=== PATIENT | female | born 1965 | race Caucasian/White ===

== ENCOUNTER 2016-09-22 20:00 | Emergency (ER) | payer MEDICARE, MEDICAID ==
[~2016-09-22] VITALS: Ht 132.1 cm; Wt 59.0 kg
[~2016-09-22 20:00] MED LIST: ACETAMINOPHEN650 MG RC; ATIVAN GENERIC0.5 MG GT; BAZA PROTECT TP; BISACODYL10 MG RC; CHEWABLE ASPIRI81 MG GT; CLINDAMYCIN HC300 MG PO; COLACE150 MG/15 GT; CORTISPORIN OTI10 M1 OT; DEPO SHOTS IM; DEPO-PROVER150 MG/M1 IM; DILANTIN 1125 MG/5 M GT; DILANTIN 50MG.50 MG GT; DILANTIN-1125 MG/51 GT; DUONEB 3 MG/3 ML3 ML IH; HYDROXYZIN10 MG/5 M2 GT; HYDROXYZINE 25M25 MG GT; HYDROXYZINE HCL25 M1 GT; IBUPROFEN100 MG/51 GT; IBUPROFEN100 MG/52 GT; IMODIUM 2MG. CAP2 MG GT; IMODIUM2 MG GT; LEVAQUIN500 MG PO; LORAZEPAM 2MG2 MG/M1 IM; LORAZEPAM IM; LORAZEPAM0.5 MG/TAB GT; LORAZEPAM0.5 MG/TAB IM; LORAZEPAM2 MG GT; LORTAB 5/500 501 TAB GT; LORTAB 5/500 501 TAB PO; MACROBID 100MG100 MG PO; MIRALAX17 GM/PACK GT; OSTERA TABLET1 EACH GT; PHENOBARBI GT; PHENOBARBITAL64.8 MG GT; SENNA8.6 M1 GT; SIMETHICONE80 MG GT; TYLENOL 325MG325 MG PO; VICODIN 5/500 T1 TAB GT; ZYPREXA5 MG GT; [UNRECOGNIZED DRUG - OTHER] RC
--- NOTE | 2016-09-22 21:37 | Emergency Room Report ---
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 N Clinical Suspician of Infection? N Mental Status: 1 - Regular (Normal Baseline) Sepsis Risk:Low Sepsis Risk Have you (or family members/close friends) recently traveled outside the [place]? N If Yes, where/when: Have you had exposure to infectious disease within the past month? N TB? Other? Specify: Source RN notes reviewed, family, RN/MD Exam Limitations no limitations Comment This is a 51-year-old lady, [facility] resident, brought in by ambulance for evaluation of a dislodged PEG tube, just noticed by [facility] staff. We were advised that the PEG tube has been out for an unknown known amount of time. Patient has a history of PKU, [facility] staff believes she could have pulled the PEG tube out. ALLERGIES Coded Allergies: Penicillins (I-RASH 09/10/16) ceftriaxone (UNKNOWN REACTION 09/10/16) potassium (UNKNOWN REACTION 09/10/16) Home Medications Active Scripts Levofloxacin (Levaquin 500MG) 500 MG PO DAILY #7 TAB Prov: 09/13/16 Clindamycin Hcl (Clindamycin 300MG) 300 MG PO TID #30 CAP Prov: 09/13/16 Reported Medications Hydroxyzine Pamoate (Hydroxyzine) 25 MG GT BID Phenytoin (Dilantin) 100 MG GT TID Phenytoin (Dilantin) 100 MG GT BID Lorazepam (Lorazepam 2MG/Ml Vial) 1 MG IM Q4HP PRN SEIZURE Polyethylene Glycol 3350 (Miralax) 17 GM GT DAILYP Sennosides (Senna) 8.6 MG GT DAILY NA PHOS,M-B/NA PHOS,DI-BA (Enema Ready To Use) 135 ML RC DAILYP PRN CONSTIPATION HYDROXYZINE HCL (Hydroxyzine HCl) 25 MG GT TIDP PRN ITCHING IBUPROFEN (Ibuprofen 100MG/5ML Susp Udc) 400 MG GT Q6HP PRN PAIN/FEVER Loperamide Hcl (Loperamide) 2 MG GT Q6HP PRN DIARRHEA Bisacodyl (Bisacodyl Supp) 10 MG RC Q72HP Aspirin (Aspirin, Chewable) 81 MG GT DAILY SIMETHICONE (Simethicone 80MG) 80 MG GT QIDP PRN GAS Phenobarbital 64.8 MG GT Q12 Medroxyprogesterone Acetate (Depo-Provera) 150 MG IM [id number] Lorazepam (Lorazepam 0.5MG) 0.5 MG GT TID Vit D3 & K/Berberine HCl/Hops (Ostera Tablet) 1 EACH GT DAILY History Medical History General CAD? No Angina: No VA: No Hypertension? No Hyperlipidemia? No CHF? No DVT? No PE? No COPD? No Asthma? No Anemia? No GERD? No Gastric ulcers? No GI Bleed? No Hernia? No Thyroid Problems? No Hypothyroidism? No CVA? No Seizures? Yes Diabetes? No Renal Insuffiency? No End Stage Renal Disease? No UTI? Yes Stones? No BPH? No GB Disease: No Nephritic Syndrome? No Asplenia? No Hepatitis? No Sickle Cell Disease? No Arthritis? No Migraines? No Cataracts? No Glaucoma? No MRSA? No HIV? No TB? No Anxiety? No Depression? No Cancer? No More? 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 N/A Family History Family Hx Diabetes Yes CAD No Hypertension Yes Hyperlipidemia No Cancer No TB No Social History Smoking Hx Smoker: Never Smoker Tobacco: No Packs/day N/A Alcohol Alcohol: No Review of Systems All Other Systems Reviewed and Negative Gastrointestinal other (G tube out) Physical Exam Vital Signs Vital Signs Date Time Temp Pulse Resp B/P Pulse O2 O2 Flow FiO2 Ox Delivery Rate 09/225 98.4 95 16 120/94 99 09/22 2136 98 16 122/90 100 09/22 2101 99 16 128/80 100 09/22 2001 98.4 97 16 149/86 100 General Appearance no apparent distress, mentally retarded, confused, nonvocal Respiratory Status Yes: trachea midline, chest symmetrical, non tender chest. No: respiratory distress. Lung Sounds bilateral: normal breath sounds, lungs clear. Cardiovascular normal exam, regular rate/rhythm Gastrointestinal normal bowel sounds, normal exam, soft, no organomegaly, gastrostomy tube out, stoma open, no active bleeding Extremities non-tender, normal range of motion, normal inspection Neurologic alert, mentally retarded, consistent with PKU, nonvocal Mental status confused, depressed affect Skin intact, normal color, warm/dry Medical Decision Making LABS/Meds/Orders Pt receiving controlled substance in ED? No Comment 08:30pm-procedure note. G tube attempted to be placed back in, stome is too narrow, unable to pass the tube, no immediate complications. Garcia catheter placed through the gastrostomy stoma without any difficulty. Post-Garcia catheter placement x-ray with Gastrografin confirms correct positioning of tube. 8:45pm-case discussed with Dr Oleary, advised of patient's examination, fact that I was unable to replace the PEG tube and I have placed a temporary Garcia catheter instead. Inquired into plan of action, as far as replacing patient's Garcia catheter/ switching back to her PEG tube. The surgeon advised to [facility] to the [facility] and have the [facility] staff called his office in the morning in order to schedule a same day surgery appointment for above-mentioned procedure. Patient departed the emergency room in stable medical condition, Garcia catheter was successfully flushed with saline. Results/Orders Current Medication Orders Sig/Julian Start time Last Medication Dose Route Stop Time Status Admin Diatrizoate Meglum/ 15 ML ONCE ONE 09/22 2044 DC 09/22 Diatrizoate Sod FT 09/22 Diatrizoate Meglum/ 0 .STK-MED ONE 09/22 2035 DC Diatrizoate Sod .ROUTE Diatrizoate Meglum/ 0 .STK-MED ONE 09/22 2034 DC Diatrizoate Sod .ROUTE Orders Procedure Date/time Status KUB (SINGLE VIEW) 09/22 2036 Active XRAY/CT/US XRAY/CT/US XRAY KUB-PEG tube in satisfactory position. Departure Departure Time of Disposition 2132 Disposition DC Home or Self Care(routine) Clinical Impression Primary Impression: PEG tube malfunction Condition STABLE Referrals Brandyn Oleary MD: Tomorrow-Call Office Patient Instructions DI for Percutaneous Endoscopic Gastrostomy, How to Care for Your PEG Tube Additional Instructions Please call Dr. Oleary's office in the morning to arrange for a PEG tube placement appointment/same day surgery. In the meanwhile may use the Garcia catheter as a PEG tube. If any further problems please return patient to this emergency room promptly for reevaluation. Discharge Counseling Counseled pt/family regarding diagnosis, test results, medications/RX, home care, follow up needs Comment Please call Dr. Oleary's office in the morning to arrange for a PEG tube placement appointment/same day surgery. In the meanwhile may use the Garcia catheter as a PEG tube. If any further problems please return patient to this emergency room promptly for reevaluation. ED Critical Care Critical Care No at [id number]
--- NOTE | 2016-09-22 21:37 | Emergency Room Report ---
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 N Clinical Suspician of Infection? N Mental Status: 1 - Regular (Normal Baseline) Sepsis Risk:Low Sepsis Risk Have you (or family members/close friends) recently traveled outside the [place]? N If Yes, where/when: Have you had exposure to infectious disease within the past month? N TB? Other? Specify: Source RN notes reviewed, family, RN/MD Exam Limitations no limitations Comment This is a 51-year-old lady, [facility] resident, brought in by ambulance for evaluation of a dislodged PEG tube, just noticed by [facility] staff. We were advised that the PEG tube has been out for an unknown known amount of time. Patient has a history of PKU, half-way staff believes she could have pulled the PEG tube out. ALLERGIES Coded Allergies: Penicillins (I-RASH 09/10/16) ceftriaxone (UNKNOWN REACTION 09/10/16) potassium (UNKNOWN REACTION 09/10/16) Home Medications Active Scripts Levofloxacin (Levaquin 500MG) 500 MG PO DAILY #7 TAB Prov: 09/13/16 Clindamycin Hcl (Clindamycin 300MG) 300 MG PO TID #30 CAP Prov: 09/13/16 Reported Medications Hydroxyzine Pamoate (Hydroxyzine) 25 MG GT BID Phenytoin (Dilantin) 100 MG GT TID Phenytoin (Dilantin) 100 MG GT BID Lorazepam (Lorazepam 2MG/Ml Vial) 1 MG IM Q4HP PRN SEIZURE Polyethylene Glycol 3350 (Miralax) 17 GM GT DAILYP Sennosides (Senna) 8.6 MG GT DAILY NA PHOS,M-B/NA PHOS,DI-BA (Enema Ready To Use) 135 ML RC DAILYP PRN CONSTIPATION HYDROXYZINE HCL (Hydroxyzine HCl) 25 MG GT TIDP PRN ITCHING IBUPROFEN (Ibuprofen 100MG/5ML Susp Udc) 400 MG GT Q6HP PRN PAIN/FEVER Loperamide Hcl (Loperamide) 2 MG GT Q6HP PRN DIARRHEA Bisacodyl (Bisacodyl Supp) 10 MG RC Q72HP Aspirin (Aspirin, Chewable) 81 MG GT DAILY SIMETHICONE (Simethicone 80MG) 80 MG GT QIDP PRN GAS Phenobarbital 64.8 MG GT Q12 Medroxyprogesterone Acetate (Depo-Provera) 150 MG IM [id number] Lorazepam (Lorazepam 0.5MG) 0.5 MG GT TID Vit D3 & K/Berberine HCl/Hops (Ostera Tablet) 1 EACH GT DAILY History Medical History General CAD? No Angina: No MD: No Hypertension? No Hyperlipidemia? No CHF? No DVT? No PE? No COPD? No Asthma? No Anemia? No GERD? No Gastric ulcers? No GI Bleed? No Hernia? No Thyroid Problems? No Hypothyroidism? No CVA? No Seizures? Yes Diabetes? No Renal Insuffiency? No End Stage Renal Disease? No UTI? Yes Stones? No BPH? No GB Disease: No Nephritic Syndrome? No Asplenia? No Hepatitis? No Sickle Cell Disease? No Arthritis? No Migraines? No Cataracts? No Glaucoma? No MRSA? No HIV? No TB? No Anxiety? No Depression? No Cancer? No More? 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 Family History Family Hx Diabetes Yes CAD No Hypertension Yes Hyperlipidemia No Cancer No TB No Social History Smoking Hx Smoker: Never Smoker Tobacco: No Packs/day N/A Alcohol Alcohol: No Review of Systems All Other Systems Reviewed and Negative Gastrointestinal other (G tube out) Physical Exam Vital Signs Vital Signs Date Time Temp Pulse Resp B/P Pulse O2 O2 Flow FiO2 Ox Delivery Rate 09/225 98.4 95 16 120/94 99 09/22 2136 98 16 122/90 100 09/22 2101 99 16 128/80 100 09/22 2001 98.4 97 16 149/86 100 General Appearance no apparent distress, mentally retarded, confused, nonvocal Respiratory Status Yes: trachea midline, chest symmetrical, non tender chest. No: respiratory distress. Lung Sounds bilateral: normal breath sounds, lungs clear. Cardiovascular normal exam, regular rate/rhythm Gastrointestinal normal bowel sounds, normal exam, soft, no organomegaly, gastrostomy tube out, stoma open, no active bleeding Extremities non-tender, normal range of motion, normal inspection Neurologic alert, mentally retarded, consistent with PKU, nonvocal Mental status confused, depressed affect Skin intact, normal color, warm/dry Medical Decision Making LABS/Meds/Orders Pt receiving controlled substance in ED? No Comment 08:30pm-procedure note. G tube attempted to be placed back in, stome is too narrow, unable to pass the tube, no immediate complications. Garcia catheter placed through the gastrostomy stoma without any difficulty. Post-Garcia catheter placement x-ray with Gastrografin confirms correct positioning of tube. 8:45pm-case discussed with Dr Oleary, advised of patient's examination, fact that I was unable to replace the PEG tube and I have placed a temporary Garcia catheter instead. Inquired into plan of action, as far as replacing patient's Garcia catheter/ switching back to her PEG tube. The surgeon advised to discharge patient back to the half-way and have the half-way staff called his office in the morning in order to schedule a same day surgery appointment for above-mentioned procedure. Patient departed the emergency room in stable medical condition, Garcia catheter was successfully flushed with saline. Results/Orders Current Medication Orders Sig/Julian Start time Last Medication Dose Route Stop Time Status Admin Diatrizoate Meglum/ 15 ML ONCE ONE 09/22 2044 DC 09/22 Diatrizoate Sod FT 09/22 Diatrizoate Meglum/ 0 .STK-MED ONE 09/22 2035 DC Diatrizoate Sod .ROUTE Diatrizoate Meglum/ 0 .STK-MED ONE 09/22 2034 DC Diatrizoate Sod .ROUTE Orders Procedure Date/time Status KUB (SINGLE VIEW) 09/22 2036 Active XRAY/CT/US XRAY/CT/US XRAY KUB-PEG tube in satisfactory position. Departure Departure Time of Disposition 2132 Disposition DC Home or Self Care(routine) Clinical Impression Primary Impression: PEG tube malfunction Condition STABLE Referrals Brandyn Oleary MD: Tomorrow-Call Office Patient Instructions DI for Percutaneous Endoscopic Gastrostomy, How to Care for Your PEG Tube Additional Instructions Please call Dr. Oleary's office in the morning to arrange for a PEG tube placement appointment/same day surgery. In the meanwhile may use the Garcia catheter as a PEG tube. If any further problems please return patient to this emergency room promptly for reevaluation. Discharge Counseling Counseled pt/family regarding diagnosis, test results, medications/RX, home care, follow up needs Comment Please call Dr. Oleary's office in the morning to arrange for a PEG tube placement appointment/same day surgery. In the meanwhile may use the Garcia catheter as a PEG tube. If any further problems please return patient to this emergency room promptly for reevaluation. ED Critical Care Critical Care No at [id number]
[2016-09-22 22:35] VITALS: BP 120/94
--- NOTE | 2016-09-23 16:52 | RADIOLOGY REPORT PS360 ---
KUB (SINGLE VIEW) following contrast injection of G-tube ORDERING PHYSICIAN : Candido Resendiz MD PATIENT AGE: 51 years GENDER: Female INDICATION: G-TUBE PLACEMENT TECHNIQUE: Supine KUB following injection of G-tube. COMPARISON: Flat and upright abdomen 04/07/2016 FINDINGS Injection of Gastroview contrast into the G-tube appears to flow freely into the stomach and contain within the stomach. Satisfactory position of the tip of G-tube. Early contrast is seen emptying into the the loop of duodenum. Hiatal hernia noted extending from stomach into the lower left chest. Moderate stool in colon. Moderate gas distention throughout the hepatic flexure and proximal transverse colon. Lung bases clear . Prominent levoscoliosis L-spine again noted performed IMPRESSION: G-tube injection demonstrates satisfactory position
== END 2016-09-22 22:54 | disposition home or self-care (01) ==
LOC: ER 20:00
PROC: 0D2DXUZ Change Feeding Device in Lower Intestinal Tract, External Approach (ICD-10-PCS; principal; 2016-09-22)
DX: K94.23 Gastrostomy malfunction (principal); R56.9 Unspecified convulsions; R13.10 Dysphagia, unspecified